=== PATIENT | male | born 1990 | race Caucasian/White ===

== ENCOUNTER 2021-12-22 00:03 | Inpatient (IN) | payer MEDICAID ==
[~2021-12-22] VITALS: Ht 170.2 cm; Wt 79.4 kg
[2021-12-22 03:25] LABS: HEMOGLOBIN 12.4 gm/dl (14.0-17.5); RED BLOOD COUNT 4.17 M/UL (4.20-5.50); WHITE BLOOD COUNT 10.1 K/UL (4.5-11.0)
[2021-12-22 03:40] LABS: BUN/CREATININE RATIO 14 (0-10)
[2021-12-23 04:20] LABS: HEMOGLOBIN 12.3 gm/dl (14.0-17.5); RED BLOOD COUNT 4.14 M/UL (4.20-5.50); WHITE BLOOD COUNT 8.1 K/UL (4.5-11.0)
[2021-12-23 04:37] LABS: BUN/CREATININE RATIO 24 (0-10)
[2021-12-23] MEDS ORDERED: ZOFRAN 4 MG TAB4 MG PO (14:22)
[2021-12-23] MEDS ORDERED: AMOX TR-K CLV1 EAC4 PO (14:22)
[2021-12-23] MEDS ORDERED: ENOXAPARIN30 MG/0.3 SC (14:22)
[2021-12-23] MEDS ORDERED: ROXICODONE TAB 55 MG PO (14:22)
== END 2021-12-23 16:41 | disposition home or self-care (01) | DRG 494 ==
LOC: ER1 00:03 → CDU 02:29 → CCU 02:29
PROVIDERS: Internal Medicine; Orthopaedic Surgery; ADMIT Internal Medicine
PROC: 0QSH35Z Reposition Left Tibia with External Fixation Device, Percutaneous Approach (ICD-10-PCS; principal; 2021-12-22 18:00)
DX: S82.872A Displaced pilon fracture of left tibia, initial encounter for closed fracture (principal); S82.452A Displaced comminuted fracture of shaft of left fibula, initial encounter for closed fracture; S02.2XXA Fracture of nasal bones, initial encounter for closed fracture; R11.2 Nausea with vomiting, unspecified; J32.9 Chronic sinusitis, unspecified; Z98.890 Other specified postprocedural states; Z88.8 Allergy status to other drugs, medicaments and biological substances; Z99.3 Dependence on wheelchair
CPT/HCPCS: 70486; 73590; 73600; 73610; 73700; 76000; 80048; 85025; 85027; 96374; 96375; 96376; 99285; C1713; J0690; J1100; J1170; J1650; J1885; J2001; J2250; J2270; J2405; J2704; J3010; U0002

== ENCOUNTER → 2022-01-02 | Day surgery (SDC) | payer OTHER ==
[~2022-01-02] VITALS: Ht 172.7 cm; Wt 81.6 kg
[~2022-01-02] MED LIST: AMOX TR-K CLV1 EAC4 PO; ENOXAPARIN30 MG/0.3 SC; ROXICODONE TAB 55 MG PO; ZOFRAN 4 MG TAB4 MG PO
[2022-01-02 07:00] LABS: HEMOGLOBIN 13.8 gm/dl (14.0-17.5); RED BLOOD COUNT 4.55 M/UL (4.20-5.50); WHITE BLOOD COUNT 6.7 K/UL (4.5-11.0)
[2022-01-02 07:23] LABS: BUN/CREATININE RATIO 29 (0-10)
== END | disposition home or self-care (01) ==
LOC: OR 06:23
PROVIDERS: Orthopaedic Surgery
DX: S82.872A Displaced pilon fracture of left tibia, initial encounter for closed fracture (principal); W13.8XXA Fall from, out of or through other building or structure, initial encounter; Y93.39 Activity, other involving climbing, rappelling and jumping off; G89.18 Other acute postprocedural pain; Z88.1 Allergy status to other antibiotic agents
CPT/HCPCS: 36415; 73610; 76000; 80048; 85027; C1713; C1762; J0690; J1100; J1170; J1885; J2001; J2250; J2270; J2405; J2704; J2710; J2795; J3010; J3370